=== PATIENT | female | born 1975 | race African-American/Black ===

== ENCOUNTER 2020-02-07 17:57 | Emergency (ER) | payer OTHER ==
[2020-02-07] MEDS ORDERED: ASPIRIN 81 MG CHEWABLE TABLETS PO ONE (17:59)
[2020-02-07 18:02] VITALS: TEMP 98.1; BMI 30.9
[2020-02-07] MEDS ORDERED: ASPIRIN 81 MG CHEWABLE TABLETS ONE ×2 (18:21→18:22)
[2020-02-07 19:47] LABS: BASO % 0.6 % (0-2.0); EOS % 14.6 % (0-4.5); HEMATOCRIT 42.2 % (32.4-45.2); HEMOGLOBIN 13.5 GM/dL (10.7-15.3); LYMPH % 38.5 % (8-40); MCH 26.6 pg (25.7-33.7); MCHC 32.1 g/dl (32.0-36.0); MEAN CELL VOLUME 82.9 fl (80-96); MEAN PLT VOLUME 8.8 fl (7.5-11.1); MONO % 6.9 % (3.8-10.2); NEUT % 39.4 % (42.8-82.8); PLATELET COUNT 313 K/MM3 (134-434); RBC 5.09 M/mm3 (3.60-5.2); RDW 14.4 % (11.6-15.6); WHITE BLOOD COUNT 8.5 K/mm3 (4.0-10.0)
[2020-02-07 19:54] LABS: INR 0.97 (0.83-1.09); PROTHROMBIN TIME (PATIENT) 11.8 SEC (9.7-13.0)
[2020-02-07 19:57] LABS: ACTIVATED PTT 32.5 SECONDS (25.2-36.5)
[2020-02-07 20:11] LABS: CHLORIDE 108 mmol/L (98-107); POTASSIUM 3.8 mmol/L (3.5-5.1); SODIUM 140 mmol/L (136-145)
[2020-02-07 20:13] LABS: CALCIUM 8.9 mg/dL (8.5-10.1)
[2020-02-07 20:14] LABS: ALBUMIN 3.6 g/dl (3.4-5.0); ANION GAP 3 MMOL/L (8-16); BLOOD UREA NITROGEN 7.8 mg/dL (7-18); CO2 30 mmol/L (21-32); GLUCOSE,RANDOM 93 mg/dL (74-106); MAGNESIUM 2.2 mg/dL (1.8-2.4)
[2020-02-07 20:17] LABS: CREATININE 0.9 mg/dL (0.55-1.3); SGOT/AST 26 U/L (15-37); SGPT/ALT 23 U/L (13-61)
[2020-02-07 20:19] LABS: ALK PHOS 80 U/L (45-117); BILIRUBIN,TOTAL 0.4 mg/dL (0.2-1); TOT PROT 7.6 g/dl (6.4-8.2)
[2020-02-07 23:50] VITALS: BP 108/65; PULSE 72
== END 2020-02-07 22:19 | disposition home or self-care (01) ==
LOC: JER 17:57
DX: I31.3 Pericardial effusion (noninflammatory) (principal); R07.89 Other chest pain
CPT/HCPCS: 36415; 71046-TC-FY; 71250-TC; 80053; 82550; 82553; 83735; 84484; 84703; 85025; 85610; 85730; 86140; 93005; 93010; 99285-25

== ENCOUNTER 2021-09-03 23:01 | Emergency (ER) | payer OTHER ==
[2021-09-03 23:11] VITALS: BP 128/89; PULSE 68; TEMP 98.3; BMI 27.3
[2021-09-03] MEDS ORDERED: SODIUM CHLORIDE 1,000 ML IV STA (23:36)
[2021-09-03] MEDS ORDERED: PANTOPRAZOLE SODIUM 40 MG VIAL IVPB ONE (23:36)
[2021-09-03] MEDS ORDERED: ACETAMINOPHEN 1000 MG/100 ML BAG IVPB ONE (23:36)
[2021-09-03] MEDS ORDERED: ONDANSETRON 4 MG/2 ML VIAL IVPUSH ONE (23:36)
[2021-09-03] MEDS ORDERED: ACETAMINOPHEN INJECTION 100 ML IVPB ONE (23:52)
[2021-09-03] MEDS ORDERED: PANTOPRAZOLE SODIUM 40 MG/100 ML BAG IVPB ONE (23:53)
[2021-09-03] MEDS ORDERED: ONDANSETRON 4 MG/2 ML VIAL ONE (23:54)
[2021-09-03 23:58] LABS: BASO % 0.5 % (0-2.0); EOS % 2.9 % (0-4.5); HEMATOCRIT 34.7 % (32.4-45.2); HEMOGLOBIN 11.3 GM/dL (10.7-15.3); LYMPH % 45.8 % (8-40); MCH 26.1 pg (25.7-33.7); MCHC 32.5 g/dl (32.0-36.0); MEAN CELL VOLUME 80.2 fl (80-96); MEAN PLT VOLUME 7.6 fl (7.5-11.1); MONO % 8.2 % (3.8-10.2); NEUT % 42.6 % (42.8-82.8); PLATELET COUNT 313 10^3/uL (134-434); RBC 4.33 M/mm3 (3.60-5.2); RDW 14.7 % (11.6-15.6); WHITE BLOOD COUNT 10.4 K/mm3 (4.0-10.0)
[2021-09-04 00:19] LABS: CALCIUM 9.4 mg/dL (8.5-10.1)
[2021-09-04 00:20] LABS: ALBUMIN 3.3 g/dl (3.4-5.0); BLOOD UREA NITROGEN 8.1 mg/dL (7-18); MAGNESIUM 1.8 mg/dL (1.8-2.4)
[2021-09-04 00:22] LABS: PHOSPHOROUS 3.4 mg/dL (2.5-4.9)
[2021-09-04 00:23] LABS: CREATININE 0.8 mg/dL (0.55-1.3)
[2021-09-04 00:24] LABS: BILIRUBIN,TOTAL 0.3 mg/dL (0.2-1); TOT PROT 7.4 g/dl (6.4-8.2)
[2021-09-04 00:25] LABS: EPI CELLS >36 /uL (0-25.1); HCG,QUALITATIVE URINE Negative; HYALINE CASTS 2 /uL (0-3.1); PH,URINE 6.5 (5.0-8.0); URINE APPEARANCE CLOUDY; URINE BACTERIA 838 /uL (0-1359); URINE BILIRUBIN NEGATIVE (NEGATIVE); URINE COLOR YELLOW; URINE GLUCOSE (UA) NEGATIVE (NEGATIVE); URINE KETONE TRACE (NEGATIVE); URINE LEUK ESTERASE NEGATIVE (NEGATIVE); URINE NITRITE NEGATIVE (NEGATIVE); URINE PROTEIN NEGATIVE (NEGATIVE); URINE RBC 26 /uL (0-23.9); URINE WBC 19 /uL (0-25.8)
== END 2021-09-04 03:48 | disposition home or self-care (01) ==
LOC: JER 23:01
PROC: 3E0333Z Introduction of Anti-inflammatory into Peripheral Vein, Percutaneous Approach (ICD-10-PCS; principal; 2021-09-03)
PROC: 3E033GC Introduction of Other Therapeutic Substance into Peripheral Vein, Percutaneous Approach (ICD-10-PCS; 2021-09-03)
PROC: 3E033GC Introduction of Other Therapeutic Substance into Peripheral Vein, Percutaneous Approach (ICD-10-PCS; 2021-09-03)
PROC: 3E0337Z Introduction of Electrolytic and Water Balance Substance into Peripheral Vein, Percutaneous Approach (ICD-10-PCS; 2021-09-03)
DX: R10.84 Generalized abdominal pain (principal)
CPT/HCPCS: 36415; 74176-TC; 76705-TC; 80053; 81003; 83690; 83735; 84100; 84484; 84703; 85025; 87070; 87651; 93005; 93010; 99285-25

== ENCOUNTER 2022-04-02 12:50 | Emergency (ER) | payer OTHER ==
[2022-04-02 13:17] VITALS: BMI 25.4
[2022-04-02] MEDS ORDERED: SODIUM CHLORIDE 500 ML IV STA ×2 (14:43→16:04)
[2022-04-02 16:51] LABS: BASO % 0.3 % (0-2.0); EOS % 14.5 % (0-4.5); HEMATOCRIT 32.4 % (32.4-45.2); HEMOGLOBIN 10.2 GM/dL (10.7-15.3); LYMPH % 12.2 % (8-40); MCH 25.1 pg (25.7-33.7); MCHC 31.5 g/dl (32.0-36.0); MEAN CELL VOLUME 79.5 fl (80-96); MEAN PLT VOLUME 8.2 fl (7.5-11.1); MONO % 1.9 % (3.8-10.2); NEUT % 71.1 % (42.8-82.8); PLATELET COUNT 295 10^3/uL (134-434); RBC 4.07 M/mm3 (3.60-5.2); RDW 14.3 % (11.6-15.6); WHITE BLOOD COUNT 23.3 K/mm3 (4.0-10.0)
[2022-04-02 17:19] LABS: ANISOCYTOSIS 1+; MACROCYTOSIS 0; OVALOCYTE 0; TARGET CELLS 1+; TEAR DROP CELLS 1+
[2022-04-02 17:48] LABS: ERYTHROCYTE SEDIMENTATION RATE 60 mm/hr (0-20)
[2022-04-02 18:18] LABS: PH,URINE 6.5 (5.0-8.0); URINE APPEARANCE CLEAR; URINE BILIRUBIN NEGATIVE (NEGATIVE); URINE COLOR YELLOW; URINE GLUCOSE (UA) NEGATIVE (NEGATIVE); URINE KETONE NEGATIVE (NEGATIVE); URINE LEUK ESTERASE NEGATIVE (NEGATIVE); URINE NITRITE NEGATIVE (NEGATIVE); URINE PROTEIN TRACE (NEGATIVE)
[2022-04-02 18:31] LABS: CALCIUM 8.4 mg/dL (8.5-10.1)
[2022-04-02] MEDS ORDERED: SODIUM CHLORIDE 0.9% 500 ML INFUS.BAG IV ONE (18:31)
[2022-04-02 18:32] LABS: ALBUMIN 2.3 g/dl (3.4-5.0); BLOOD UREA NITROGEN 7.4 mg/dL (7-18); MAGNESIUM 2.2 mg/dL (1.8-2.4)
[2022-04-02 18:35] LABS: CREATININE 0.7 mg/dL (0.55-1.3)
[2022-04-02 18:37] LABS: BILIRUBIN,TOTAL 0.4 mg/dL (0.2-1); TOT PROT 6.5 g/dl (6.4-8.2)
[2022-04-02 18:50] VITALS: PULSE 87; TEMP 98.4
[2022-04-02 19:25] LABS: CALCIUM 7.8 mg/dL (8.5-10.1)
[2022-04-02 19:26] LABS: BLOOD UREA NITROGEN 7.5 mg/dL (7-18)
[2022-04-02 19:29] LABS: CREATININE 0.8 mg/dL (0.55-1.3)
[2022-04-02 19:44] VITALS: BP 90/57; RESP 22
== END 2022-04-02 21:14 | disposition short-term general hospital (02) ==
LOC: JER 12:50
DX: I31.39 Other pericardial effusion (noninflammatory) (principal); D72.829 Elevated white blood cell count, unspecified
CPT/HCPCS: 0241U-QW; 36415; 71045-TC-FY; 80048; 80053; 81003; 82436; 83735; 84133; 84156; 84300; 84703; 85025; 85651; 86038; 86140; 86431; 86618; 87086; 87207; 93005; 93010; 99285-25